=== PATIENT | female | born 1965 | race Caucasian/White ===

== ENCOUNTER → 2016-05-27 | Outpatient (REF) | payer BC ==
[2016-05-28 12:24] LABS: ALBUMIN 3.8 GM/DL (3.2-5.2); ALBUMIN/GLOBULIN RATIO 1.23 (1.00-1.93); ALKALINE PHOSPHATASE 62 U/L (45-117); ALT/SGPT 60 U/L (12-78); ANION GAP 8 MEQ/L (8-16); AST/SGOT 33 U/L (15-37); BILIRUBIN,TOTAL 0.4 MG/DL (0.2-1.0); BLOOD UREA NITROGEN 17 MG/DL (7-18); CALCIUM LEVEL 8.8 MG/DL (8.5-10.1); CARBON DIOXIDE LEVEL 29 MEQ/L (21-32); CHLORIDE LEVEL 105 MEQ/L (98-107); CREATININE FOR GFR 1.03 MG/DL (0.55-1.02); GLOMERULAR FILTRATION RATE 59.9 (>51); GLUCOSE, FASTING 111 MG/DL (70-105); SODIUM LEVEL 142 MEQ/L (136-145); TOTAL PROTEIN 6.9 GM/DL (6.4-8.2)
[2016-05-28 13:37] LABS: CONTROL LINE HPYORI INT CTR LINE PRESENT
== END ==
LOC: M SFHCCLAY 15:01
PROVIDERS: ATTEND Nurse Practitioner
DX: K30 Functional dyspepsia (principal)

== ENCOUNTER → 2016-10-04 | Outpatient (REF) | payer OTHER | LOC: M SFHCCLAY 09:32 | PROVIDERS: ATTEND Nurse Practitioner Family | DX: N94.3 Premenstrual tension syndrome (principal); Z11.59 Encounter for screening for other viral diseases ==

== ENCOUNTER → 2016-10-25 | Outpatient (REF) | payer OTHER | LOC: M SFHCCLAY 12:43 | PROVIDERS: ATTEND Nurse Practitioner Family | DX: K21.9 Gastro-esophageal reflux disease without esophagitis (principal) ==

== ENCOUNTER → 2017-07-31 | Outpatient (CLI) | payer OTHER, BC | LOC: M CLY 10:08 | DX: M19.012 Primary osteoarthritis, left shoulder (principal) | CPT/HCPCS: 73030 ==

== ENCOUNTER → 2017-08-21 | Outpatient (REF) | payer BC ==
[2017-08-21 14:14] LABS: BASO % 0.6 % (0.0-1.0); EOS # 0.2 10^3/uL (0.0-0.50); EOS % 3.3 % (0.0-3.0); HEMATOCRIT 38.4 % (36.0-47.0); HEMOGLOBIN 12.4 g/dl (12.0-15.5); IMMATURE GRANULOCYTE % 0.2 % (0-3.0); LYMPH # 1.8 10^3/uL (1.5-4.5); LYMPH % 34.4 % (24.0-44.0); MEAN CORPUSCULAR HEMOGLOBIN 29.7 pg (27.0-33.0); MEAN CORPUSCULAR HGB CONC 32.3 g/dl (32.0-36.5); MEAN CORPUSCULAR VOLUME 92.1 fl (80.0-96.0); MONO # 0.4 10^3/uL (0.0-0.8); MONO % 6.8 % (0.0-5.0); NEUTROPHILS # 2.8 10^3/uL (1.8-7.7); NEUTROPHILS % 54.7 % (36.0-66.0); PLATELET COUNT, AUTOMATED 213 10^3/uL (150-450); RED BLOOD COUNT 4.17 10^6/uL (4.00-5.40); WHITE BLOOD COUNT 5.1 10^3/uL (4.0-10.0)
[2017-08-21 14:35] LABS: ALBUMIN 3.8 GM/DL (3.2-5.2); ALBUMIN/GLOBULIN RATIO 1.12 (1.00-1.93); ALKALINE PHOSPHATASE 73 U/L (45-117); ALT/SGPT 69 U/L (12-78); ANION GAP 6 MEQ/L (8-16); AST/SGOT 41 U/L (7-37); BILIRUBIN,TOTAL 0.3 MG/DL (0.2-1.0); BLOOD UREA NITROGEN 21 MG/DL (7-18); CALCIUM LEVEL 8.8 MG/DL (8.5-10.1); CARBON DIOXIDE LEVEL 29 MEQ/L (21-32); CHLORIDE LEVEL 108 MEQ/L (98-107); CREATININE FOR GFR 0.95 MG/DL (0.55-1.30); GLOMERULAR FILTRATION RATE > 60.0 (>51); GLUCOSE, FASTING 116 MG/DL (70-100); POTASSIUM SERUM 4.2 MEQ/L (3.5-5.1); RHEUMATOID FACTOR QUANT < 10.0 IU/ML (<15.0); SODIUM LEVEL 143 MEQ/L (136-145); TOTAL PROTEIN 7.2 GM/DL (6.4-8.2)
[2017-08-21 15:11] LABS: ERYTHROCYTE SEDIMENTATION RATE 29 mm/hr (0-30)
[2017-08-22 14:14] LABS: ANTINUCLEAR ANTIBODIES DIRECT Negative (Negative)
== END ==
LOC: M LABNEURO 09:26
DX: R51 Headache (principal)
CPT/HCPCS: 84443

== ENCOUNTER → 2017-11-19 | Outpatient (REF) | payer BC ==
[2017-11-19 17:30] LABS: CHOLESTEROL LEVEL 209 MG/DL (<200); GLUCOSE, FASTING 93 MG/DL (70-100); HDL CHOLESTEROL 55 MG/DL (>40); LDL CHOLESTEROL 132.2 MG/DL (<100); NON-HDL-C 154 MG/DL; TRIGLYCERIDES LEVEL 109 MG/DL (<150)
[2017-11-19 18:25] LABS: ESTIMATED AVERAGE GLUCOSE 111 MG/DL (60-110); HEMOGLOBIN A1c 5.5 %
== END ==
LOC: M SFHCCLAY 10:22
DX: E78.4 Other hyperlipidemia (principal); R73.9 Hyperglycemia, unspecified
CPT/HCPCS: 82947

== ENCOUNTER → 2017-12-11 | Outpatient (CLI) | payer BC | LOC: M CARPUL 08:30 | DX: I34.1 Nonrheumatic mitral (valve) prolapse (principal) | CPT/HCPCS: 93306 ==

== ENCOUNTER → 2020-07-13 | Outpatient (REF) | payer OTHER ==
[2020-07-13 17:04] LABS: BASO % 0.6 % (0.0-1.0); EOS # 0.2 10^3/uL (0.0-0.5); EOS % 3.5 % (0.0-3.0); HEMATOCRIT 40.5 % (36.0-47.0); HEMOGLOBIN 12.9 g/dl (12.0-15.5); MEAN CORPUSCULAR HEMOGLOBIN 29.5 pg (27.0-33.0); MEAN CORPUSCULAR HGB CONC 31.9 g/dl (32.0-36.5); MEAN CORPUSCULAR VOLUME 92.5 fl (80.0-96.0); MONO # 0.5 10^3/uL (0.0-0.8); MONO % 9.2 % (2.0-8.0); NEUTROPHILS # 2.5 10^3/uL (1.5-8.5); NEUTROPHILS % 47.5 % (36.0-66.0); PLATELET COUNT, AUTOMATED 199 10^3/uL (150-450); RED BLOOD COUNT 4.38 10^6/uL (4.00-5.40); WHITE BLOOD COUNT 5.2 10^3/uL (4.0-10.0)
[2020-07-13 22:29] LABS: ALBUMIN 3.8 GM/DL (3.2-5.2); ALT/SGPT 38 U/L (12-78); BILIRUBIN,TOTAL 0.4 MG/DL (0.2-1.0); BLOOD UREA NITROGEN 25 MG/DL (7-18); CALCIUM LEVEL 9.2 MG/DL (8.5-10.1); CARBON DIOXIDE LEVEL 32 MEQ/L (21-32); CHLORIDE LEVEL 108 MEQ/L (98-107); CHOLESTEROL LEVEL 213 MG/DL (<200); CHOLESTEROL RISK RATIO 3.872 (<5); CREATININE FOR GFR 0.99 MG/DL (0.55-1.30); FREE T4 0.87 NG/DL (0.76-1.46); GLOMERULAR FILTRATION RATE > 60.0 (>51); GLUCOSE, FASTING 98 MG/DL (70-100); HDL CHOLESTEROL 55 MG/DL (>40); LDL CHOLESTEROL 120 MG/DL (<100); NON-HDL-C 158 MG/DL; POTASSIUM SERUM 4.6 MEQ/L (3.5-5.1); SODIUM LEVEL 143 MEQ/L (136-145); TOTAL PROTEIN 7.1 GM/DL (6.4-8.2); TRIGLYCERIDES LEVEL 190 MG/DL (<150)
[2020-07-14 10:20] LABS: TOTAL 25(OH) VITAMIN D 26.5 NG/ML (30.0-100.0)
== END ==
LOC: M SFHCCLAY 11:12
PROVIDERS: ATTEND Nurse Practitioner Family
DX: I34.1 Nonrheumatic mitral (valve) prolapse (principal); I35.1 Nonrheumatic aortic (valve) insufficiency; R73.01 Impaired fasting glucose; E78.49 Other hyperlipidemia

== ENCOUNTER → 2020-08-31 | Outpatient (CLI) | payer OTHER ==
--- NOTE | 2020-09-01 09:04 | ECHO ---
ECHOCARDIOGRAM DATE OF PROCEDURE: 08/31/2020 Age: 55 Gender: Female Height: 70 inches Weight: 237 pounds Body Surface Area: 2.24 m2 PATIENT LOCATION: Outpatient. REFERRING PROVIDER: LOGAN Main. INDICATION: Mitral valve prolapse. MEASUREMENTS: 2D Measurements: RV 3.9 cm LV 4.5 cm Septum 1.1 cm Posterior wall 1.1 cm Aortic Root 3.6 cm LA - 3.9 cm LVEF 75% Doppler Measurements: AV 1.97 m/s LVOT 1.14 m/s LVOT diameter 2.2 cm Mean AV systolic gradient 9 mmHg MV-E 74, A 89, EA ratio 0.8 Early mitral deceleration time 183 msec E prime medial 7.5, A prime medial 10, E prime lateral 7.5 Average E/E prime ratio 10/PCWP 14.3 mmHg PV - 0.75 m/s Pulmonary artery acceleration time 140 msec RVSP 28 mmHg IVC - 1.8 cm COMMENTS: Normal sinus rhythm without intraventricular conduction disturbance. A technically challenging study in light of the patient's body habitus, but diagnostically useful information was still obtained. M-mode and 2-dimensional echocardiography was performed with pulse, continuous wave, color flow, and tissue Doppler studies. Normal left ventricular size, wall thickness, and hyperkinetic wall motion. Normal left atrial size with grade 1 LV diastolic dysfunction but currently normal estimated mean left atrial pressure. Normal right heart chamber sizes, wall motion, and estimated pulmonary arterial pressure. Normal IVC size and collapse against an elevated central venous pressure. Normal aortic dimensions. Difficult to precisely visualize the aortic cusps but believed to have three equal size cusps with adequate cusp separation. Slightly rapid peak transvalvular gradient related to hyperkinetic left ventricular wall motion and ejection rather than left ventricular outflow tract obstruction. There was moderate to moderately severe aortic insufficiency. Slight thickening of the mitral annulus but normal leaflet thickness and excursion with no posterior systolic buckling. Very mild mitral insufficiency. Normal appearing tricuspid valve with very mild insufficiency. No apparent intracardiac mass or pericardial effusion. The above findings are not consistent with myxomatous proliferation of the mitral valve or prolapse. Her murmur is most likely related to her LV outflow tract and her aortic insufficiency. A follow up study would be suggested in two years to reassess aortic valve appearance and function as well as left ventricular size and function.
== END ==
LOC: M CARPUL 13:31
PROVIDERS: ATTEND Nurse Practitioner Family
DX: I08.0 Rheumatic disorders of both mitral and aortic valves (principal)

== ENCOUNTER 2020-10-19 07:15 | Day surgery (SDC) | payer OTHER ==
[~2020-10-19] VITALS: Ht 177.8 cm; Wt 107.5 kg
[~2020-10-19 07:15] MED LIST: DRIS50003 PO; MAGN400C2 PO; NS 1,000 ML IV ONE; SERT25TA21
[2020-10-19] MEDS ORDERED: propofoL 500 MG/50 ML VIAL As Ordered ONE (08:23)
[2020-10-19] MEDS ORDERED: LIDOCAINE 2% 100MG/5ML SDV (FOR ANES.) As Ordered ONE (08:23)
--- NOTE | 2020-10-19 08:51 | ROOR ---
Patient Name: Susan Vaughn Procedure Date: 10/19/2020 8:25 AM Date of : 1965 Age: 55 Room: [facility] Gender: Female Note Status: Finalized Procedure: Colonoscopy Indications: Screening in patient at increased risk: Family history of 1st-degree relative with colorectal cancer before age 60 years Providers: Howard Lr Jr, MD Referring MD: Cathryn Victoria NP Requesting Provider: Medicines: Propofol per Anesthesia Complications: No immediate complications. Procedure: Pre-Anesthesia Assessment: - Prior to the procedure, a History and Physical was performed, and patient medications and allergies were reviewed. The patient is competent. The risks and benefits of the procedure and the sedation options and risks were discussed with the patient. All questions were answered and informed consent was obtained. Patient identification and proposed procedure were verified by the physician and the nurse in the pre-procedure area and in the procedure room. Mental Status Examination: alert and oriented. Airway Examination: normal oropharyngeal airway and neck mobility. Respiratory Examination: clear to auscultation. CV Examination: normal. ASA Grade Assessment: II - A patient with mild systemic disease. After reviewing the risks and benefits, the patient was deemed in satisfactory condition to undergo the procedure. The anesthesia plan was to use moderate sedation / analgesia (conscious sedation). Immediately prior to administration of medications, the patient was re-assessed for adequacy to receive sedatives. The heart rate, respiratory rate, oxygen saturations, blood pressure, adequacy of pulmonary ventilation, and response to care were monitored throughout the procedure. The physical status of the patient was re-assessed after the procedure. The Colonoscope was introduced through the anus and advanced to the cecum, identified by appendiceal orifice and ileocecal valve. The colonoscopy was performed without difficulty. The patient tolerated the procedure well. The quality of the bowel preparation was adequate. Findings: The recto-sigmoid colon, sigmoid colon, descending colon and transverse colon appeared normal. Three polyps were found in the rectum, ascending colon and cecum. The polyps were diminutive in size. These polyps were removed with a cold snare. Resection was complete, but the polyp tissue was only partially retrieved. Impression: - The recto-sigmoid colon, sigmoid colon, descending colon and transverse colon are normal. - Three diminutive polyps in the rectum, in the ascending colon and in the cecum, removed with a cold snare. Complete resection. Partial retrieval. Recommendation: - Discharge patient to home (ambulatory). - Repeat colonoscopy in 5 years for surveillance. Procedure Code(s): --- Professional --- 98288, Colonoscopy, flexible; with removal of tumor(s), polyp(s), or other lesion(s) by snare technique Diagnosis Code(s): --- Professional --- Z80.0, Family history of malignant neoplasm of digestive organs K62.1, Rectal polyp K63.5, Polyp of colon CPT copyright 2019 [employer]. All rights reserved. The codes documented in this report are preliminary and upon core inserter review may be revised to meet current compliance requirements. Howard Lr MD Howard Lr Jr, MD 10/19/2020 8:51:12 AM Electronically signed by Howard Lr Jr, MD Number of Addenda: 0 Note Initiated On: 10/19/2020 8:25 AM Estimated Blood Loss: Estimated blood loss: none.
[2020-10-19 09:24] VITALS: BP 126/61
== END 2020-10-19 09:25 | disposition home or self-care (01) ==
LOC: M OPP 07:15
PROVIDERS: ATTEND Surgery
DX: Z12.11 Encounter for screening for malignant neoplasm of colon (principal); Z80.0 Family history of malignant neoplasm of digestive organs; D12.6 Benign neoplasm of colon, unspecified; K62.1 Rectal polyp; I34.1 Nonrheumatic mitral (valve) prolapse; Z79.899 Other long term (current) drug therapy; F17.210 Nicotine dependence, cigarettes, uncomplicated

== ENCOUNTER → 2021-03-07 | Outpatient (CLI) | payer OTHER ==
[~2021-03-07] MED LIST changes: -NS 1,000 ML IV ONE
--- NOTE | 2021-03-08 08:26 | REP ---
INDICATION: RO5.9, COUGH COMPARISON: None. TECHNIQUE: PA and lateral. FINDINGS: The mediastinum and cardiac silhouette are normal. The lung levy are clear and without acute consolidation, effusion, or pneumothorax. The skeletal structures are intact and normal. IMPRESSION: No acute cardiopulmonary process. <Electronically signed by Stevie Leroy > 03/08/21 [id number]
== END ==
LOC: M CLY 10:52
PROVIDERS: ATTEND Nurse Practitioner Family
DX: R05.9 Cough, unspecified (principal); F17.210 Nicotine dependence, cigarettes, uncomplicated

== ENCOUNTER → 2021-09-05 | Outpatient (REF) | payer OTHER | LOC: M SFHCCLAY 11:14 | PROVIDERS: ATTEND Nurse Practitioner Family | DX: R73.01 Impaired fasting glucose (principal) ==

== ENCOUNTER → 2022-09-11 | Outpatient (REF) | payer OTHER | LOC: M SFHCCLAY 17:29 | PROVIDERS: ATTEND Nurse Practitioner Family | DX: H60.503 Unspecified acute noninfective otitis externa, bilateral (principal) ==

== ENCOUNTER → 2022-11-05 | Outpatient (REF) | payer OTHER | LOC: M SFHCCLAY 09:16 | PROVIDERS: ATTEND Nurse Practitioner Family | DX: Z53.9 Procedure and treatment not carried out, unspecified reason (principal) ==

== ENCOUNTER → 2023-07-02 | Outpatient (CLI) | payer OTHER | LOC: M PLAIMG 13:12 | PROVIDERS: ATTEND Psychiatry & Neurology Neurology | DX: G93.2 Benign intracranial hypertension (principal); R42 Dizziness and giddiness ==